=== PATIENT | male | born 1955 | race Caucasian/White ===

== ENCOUNTER → 2022-11-25 14:38 | Outpatient (BNVA) | payer MEDICARE, SELFPAY | PROVIDERS: PCP Clinical Nurse Specialist Adult Health; Visit Provider Clinical Nurse Specialist Adult Health | DX: I10 Essential (primary) hypertension (principal); Z12.5 Encounter for screening for malignant neoplasm of prostate | CPT/HCPCS: 80053; 80061; 83036; 84153; 84443; 85025 ==

== ENCOUNTER 2023-08-30 17:02 | Emergency (ER) | payer MEDICARE, SELFPAY ==
[2023-08-30 17:03] VITALS: BP 196/117; PULSE 91; RESP 18; TEMP 36.4; O2SAT 98; BMI 23.0
--- NOTE | 2023-08-30 17:22 | CTR_ITS ---
PROCEDURE INFORMATION: Exam: CT Chest With Contrast; Diagnostic Exam date and time: 08/30/2023 7:30 PM Age: 68 years old Clinical indication: Abdominal pain; Acute; Chest pressure; Patient HX: PT uncooperative had to be held to get scan got the best we could; Additional info: Right flank pain TECHNIQUE: Imaging protocol: Diagnostic computed tomography of the chest with contrast. Radiation optimization: All CT scans at this facility use at least one of these dose optimization techniques: automated exposure control; mA and/or kV adjustment per patient size (includes targeted exams where dose is matched to clinical indication); or iterative reconstruction. Contrast material: OMNI 350; Contrast volume: 100 ml; Contrast route: INTRAVENOUS (IV); COMPARISON: No relevant prior studies available. RADIATION DOSE METRICS: Total DLP (mGy-cm): 1311.55 FINDINGS: Limitations: Study somewhat limited due to streak artifact created by the patient being scanned with the arms at the sides. Lungs: There is calcified granuloma in the middle lobe. There is mild dependent atelectasis at the lung bases. Pleural spaces: Unremarkable. No pneumothorax. No pleural effusion. Heart: Unremarkable. No cardiomegaly. No pericardial effusion. Lymph nodes: There are calcified mediastinal lymph nodes in keeping with old granulomatous disease. There are small paratracheal and prevascular lymph nodes. There is no adenopathy. Vasculature: There is no thoracic aortic aneurysm or dissection. Bones/joints: There is no evidence of acute fracture. The thoracic spine demonstrates moderate degenerative changes at multiple levels. There is mild chronic appearing wedging of T7. There is mild scoliosis in the upper and midthoracic spine. Soft tissues: Unremarkable. PROCEDURE INFORMATION: Exam: CT Abdomen And Pelvis With Contrast Exam date and time: 08/30/2023 7:30 PM Age: 68 years old Clinical indication: Abdominal pain; Acute; Chest pressure; Patient HX: PT uncooperative had to be held to get scan got the best we could; Additional info: Right flank pain TECHNIQUE: Imaging protocol: Computed tomography of the abdomen and pelvis with contrast. Radiation optimization: All CT scans at this facility use at least one of these dose optimization techniques: automated exposure control; mA and/or kV adjustment per patient size (includes targeted exams where dose is matched to clinical indication); or iterative reconstruction. Contrast material: OMNI 350; Contrast volume: 100 ml; Contrast route: INTRAVENOUS (IV); COMPARISON: No relevant prior studies available. RADIATION DOSE METRICS: Total DLP (mGy-cm): 1311.55 FINDINGS: Limitations: Study somewhat limited due to streak artifact created by the patient being scanned with the arms at the sides. Diaphragm: There is a small hiatal hernia. Liver: There is a diffuse decrease in hepatic parenchymal density, consistent with mild fatty infiltration. There is no focal abnormality within the liver. Gallbladder and bile ducts: The gallbladder is normal. There is no common bile duct dilation. Pancreas: The pancreas is normal. Spleen: The spleen is normal. Adrenal glands: The adrenal glands are normal. Kidneys and ureters: The kidneys are normal. There is no evidence of hydronephrosis. There is no evidence of renal or ureteral calcifications. Stomach and bowel: Moderate diverticulosis is present in the distal colon. There is no evidence of colitis/diverticulitis. There is no evidence of intestinal obstruction. There is a large amount of feces throughout the colon which could represent constipation. Please correlate clinically Appendix: A normal appendix is identified. Intraperitoneal space: There is no evidence of free intraperitoneal fluid. Vasculature: The aorta demonstrates mild atherosclerotic calcification. There is no evidence of an abdominal aortic aneurysm. Lymph nodes: There is no evidence of lymphadenopathy. Urinary bladder: Unremarkable as visualized. Reproductive: The prostate demonstrates mild nonspecific enlargement. The seminal vesicles are normal. Bones/joints: The lumbar spine demonstrates moderate degenerative changes at multiple levels. There is no evidence of acute fracture. Soft tissues: There are bilateral inguinal hernias containing only fat. CT/CT chest abdpel w/*[id number] IMPRESSION: No acute findings in the chest. IMPRESSION: No acute findings in the abdomen or pelvis.
--- NOTE | 2023-08-30 17:25 | ED_ITS ---
HPI - Abdominal Pain 2 General: Chief Complaint: Abdominal Pain Stated Complaint: ABD PAIN Time Seen by Provider: 08/30/23 17:09 Source: patient Mode of arrival: EMS Limitations: no limitations History of Present Illness: This patient presents to the emergency department via EMS. EMS was called by spouse because of concerned about persistent and recurrent right abdominal and flank pain. Apparently this patient has been having the symptoms off and on for the past 6 weeks. No known inciting event. 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 He states he denies any known injury. He states that there was some thought that in the past he had developed a pneumonia with cough and that he may have had a musculoskeletal cause of his symptoms. He has been evaluated at [facility] recently and prior to proceeding that he was at [place] below for evaluation without any diagnosis. He states when he left [facility] 3 days ago he was feeling better but they did not know what the cause of his symptoms were. He has not any abdominal surgeries. He denies any history of cardiovascular disease. Denies history of renal stones. He states he has had back surgeries but has no history of loss of bowel or bladder control fever weakness numbness loss of strength etc. There is been no fevers associated with his current symptoms. He states that on occasion he will wake him from sleep. He states when they come on they are almost incapacitating and then they rasheeda. MD elicited complaint: abdominal pain and flank pain Location: RUQ and R flank Severity: severe Quality: cramping and sharp Relieving factors: nothing Associated Symptoms: Reports no associated symptoms; Denies chills, diarrhea, dysuria, fever(s), hematochezia, hematuria, hematemesis, melena and syncope Review of Systems 2 Const: Denies: fever(s) or chills Eyes: Denies: change in vision ENMT: Denies: nasal discharge or nasal congestion Card: Denies: chest pain, palpitations, irregular heart rhythm, lightheadedness or syncope Resp: Denies: dyspnea, productive cough, non-productive cough or wheezing GI: Reports: abdominal pain; Denies: hematemesis, diarrhea, hematochezia or melena : Reports: flank pain; Denies: difficulty urinating, dysuria, urinary frequency or hematuria Musc: Denies: neck pain, extremity pain or extremity swelling Skin/Breast: Denies: rash Neuro: Denies: headache(s), numbness in extremities or weakness in extremities Psych: Denies: anxiety or depression PFSH ED 2 PFSH: Medical History Insomnia Screening for colon cancer Screening for prostate cancer Hypertension Bulging of cervical intervertebral disc Surgical History History of back surgery hx of 5 back surgeries in past, with some fusions and some discectomies. He has some that have wires in place. Family History Other Diabetes Hyperlipidemia Hypertension Social History Smoking and tobacco/nicotine status: current every day tobacco/nicotine user smokeless tobacco Smokeless tobacco user: chewing tobacco Smokeless tobacco details: for 50 years Alcohol intake: former Physical Exam 2 Narrative: EXAM NARRATIVE: Patient on initial interview was in no acute distress alert and cooperative and answers questions in a goal-directed fashion and developed a spasm of pain which caused her to bend over and attempt to get out of bed and attempt to find a comfortable position. Const: COMMON NORMALS: average body habitus, patient oriented x3, healthy appearing and alert GENERAL APPEARANCE: cooperative HENMT: COMMON NORMALS: normocephalic, Normal nasal mucous membranes and turbinates present, moist oral mucous membranes and oropharynx normal HEAD & SCALP: normocephalic NOSE: Normal nasal mucous membranes and turbinates present Eye: COMMON NORMALS: Equal, round and reactive pupils present, EOMs intact bilaterally and conjunctivae normal CONJUNCTIVA: Yes conjunctivae normal P UPIL: Yes Equal, round and reactive pupils present Neck/C-Spine: COMMON NORMALS: full ROM, no lymphadenopathy, supple, no JVD and No carotid bruits Chest: COMMONS NORMALS: normal inspection of the chest and normal palpation of entire chest wall Resp: COMMON NORMALS: normal respiratory effort, No retractions, No use of accessory muscles and clear to auscultation bilaterally AUSCULTATION: clear to auscultation bilaterally Cardio: COMMON NORMALS: no JVD, regular rate, regular rhythm, No murmurs present (Cardio) and Peripheral pulses 2+ throughout RATE: regular rate R HYTHM: regular rhythm PERIPHERAL PULSES: Peripheral pulses 2+ throughout GI: COMMON NORMALS: Normal to inspection, nondistended, normoactive bowel sounds present PALPATION: Yes Tenderness to palpation present (GI) (He has tenderness to palpation around the right flank. No skin rashes, ecc) Back/Pelvis: COMMON NORMALS: thoracic and lumbar spine normal to inspection, no thoracic nor lumbar tenderness, thoraco-lumbar ROM normal and straight leg raise negative bilaterally Extremity: COMMON NORMALS: normal to inspection, full ROM, capillary refill normal, no joint enlargement, no clubbing, cyanosis or edema and no calf tenderness Neuro: COMMON NORMALS: patient oriented x3, moves all extremities, no focal motor deficits and no sensory deficits noted SENSORIUM/ORIENTATION: Yes alert GAIT: Yes Normal gait present Psych: COMMON NORMALS: mental status grossly normal Skin: COMMON NORMALS: no rashes or lesions noted, turgor normal and no jaundice GENERAL SKIN EXAM: no rashes or lesions noted and turgor normal Course 2 Reevaluation(s): Reevaluation #1: Patient's not able to lie flat for his CT we will go ahead and give him a benzodiazepine to medicate some of his symptoms which I think are musculoskeletal and then reattempt study. Time: 18:43 Reevaluation #2: Patient has been symptom-free now for some time. Discussed current findings with patient and spouse. CT scan is unrevealing for any significant pathology of emergent concern. Discussed the possibility given the negative workup thus far both at this facility and others in his current clinical picture that there is likely a musculoskeletal component. His then raised concern that is there a potential that this could be a physical complaint related to feeling his feeling depressed. She states that he does not engage in some of the usual pleasurable activities such as working around his house using his new tractor and that she will come home at times and he will be in a house by himself with the lights turned down lower the TV off or on mute. She has been not concerned that he is thinking of harming himself but she is thinking that he is sad and depressed. Time: 21:45 Vital Signs: Vital signs: Vital Signs Temperature 97.6 F 08/30/23 17:03 Pulse Rate 91 08/30/23 17:03 Respiratory Rate 16 08/30/23 19:06 Blood Pressure 178/103 08/30/23 19:06 Pulse Oximetry 98 08/30/23 17:03 Oxygen Delivery Me thod Room Air 08/30/23 17:03 MDM - Abdominal Pain Medical Decision Making This patient presented to our emergency department because of recurrent symptoms of occurred over the past 6 weeks predominantly of intermittent colicky type abdominal pain. This has had no significant pattern related to activity food elimination etc. No nausea vomiting diarrhea fevers chills or other associated symptoms. No prior abdominal surgeries. He has been evaluated to do other facility earlier this month with a negative workup as well as [facility] for an extended workup with a negative result for any pathology. Clinical exam revealed essentially normal examination although he did display symptoms during our interview of extreme doubling over and acting as if he was in extreme discomfort. There was no evidence to suggest acute abdomen clinically etc. Because of his presentation a workup was initiated to include laboratories as well as CT chest abdomen pelvis. Laboratories as well as imaging were very reassuring without any evidence of pathology. He did require both the use of analgesics as well as a benzodiazepine to control his symptoms. raise the specter of possible depressive related to somatic symptoms and this certainly could be a possibility as well as possibility of just muscle spasm which was triggered by coughing episodes historically per the patient. Early no evidence at this time of an ongoing emergency medical condition but will require additional follow-up and evaluation. I started the patient on a low-dose of benzo benzodiazepine as a muscle relaxant to take for the next week to see if that controls his symptoms and at the 's request I also initiated a SSRI Zoloft 25 mg daily #7 until he is seen in his primary care clinic. We also discussed discussed return precautions. Lab Data I reviewed the patient's lab results. 08/30/23 17:43 08/30/23 17:43 Labs/Radiology: Radiology Impressions Chest/Abdomen/Pelvis CT 08/30/23 17:22 IMPRESSION: No acute findings in the chest. IMPRESSION: No acute findings in the abdomen or pelvis. Laboratory Results WBC 8.54 10^3/uL (3.29-11.43) 08/30/23 17:43 RBC 5.74 10^6/uL (3.85-5.65) H 08/30/23 17:43 Hgb 17.40 g/dL (11.27-16.99) H 08/30/23 17:43 Hct 50.6 % (37-53) 08/30/23 17:43 MCV 88.2 fl (82-101) 08/30/23 17:43 MCH 30.3 pg (27-33) 08/30/23 17:43 MCHC 34.4 g/dL (30-55) 08/30/23 17:43 RDW 12.5 % (12.1-15.1) 08/30/23 17:43 Plt Count 300 10^3/cmm (157-399) 08/30/23 17:43 MPV 9.4 fL (7.4-10.4) 08/30/23 17:43 Neut % (Auto) 70.0 % 08/30/23 17:43 Lymph % (Auto) 17.3 % 08/30/23 17:43 [place] % (Auto) 9.8 % 08/30/23 17:43 Eos % (Auto) 1.9 % 08/30/23 17:43 Baso % (Auto) 0.6 % 08/30/23 17:43 Neut # (Auto) 5.98 10^3/uL (1.8-7.7) 08/30/23 17:43 Lymph # (Auto) 1.5 10^3/uL (0.8-4.8) 08/30/23 17:43 [place] # (Auto) 0.8 10^3/uL (0.2-0.9) 08/30/23 17:43 Eos # (Auto) 0.2 10^3/uL (0.0-0.8) 08/30/23 17:43 Baso # (Auto) 0.1 10^3/uL (0.0-0.1) 08/30/23 17:43 Nucleated RBC % (auto) 0 % 08/30/23 17:43 Nucleated RBCs # 0.0 /100WBC 08/30/23 17:43 Sodium 133 mmol/L (136-145) L 08/30/23 17:43 Potassium 4.3 mmol/L (3.5-5.1) 08/30/23 17:43 Chloride 97 mmol/L (98-107) L 08/30/23 17:43 Carbon Dioxide 26 mmol/L (22-29) 08/30/23 17:43 Anion Gap 14.3 (5-19) 08/30/23 17:43 BUN 11 mg/dL (8-23) 08/30/23 17:43 Creatinine 0.8 mg/dL (0.7-1.2) 08/30/23 17:43 GFR Calculation 96.1 mL/min (90-130) 08/30/23 17:43 Glucose 126 mg/dL (65-115) H 08/30/23 17:43 Calculated Osmolality 277 mOsm/kg (285-295) L 08/30/23 17:43 Calcium 8.6 mg/dL (8.5-10.5) 08/30/23 17:43 Total Bilirubin 0.4 mg/dL (0.15-1.2) 08/30/23 17:43 AST 18 U/L (0-40) 08/30/23 17:43 ALT 23 U/L (0-41) 08/30/23 17:43 Alkaline Phosphatase 63 U/L (40-130) 08/30/23 17:43 Total Protein 7.6 g/dL (6.6-8.7) 08/30/23 17:43 Albumin 4.4 g/dL (3.5-5.2) 08/30/23 17:43 Globulin 3.2 g/dL (1.3-4.6) 08/30/23 17:43 Lipase 35 U/L (13-60) 08/30/23 17:43 All radiology interpretation(s) finalized by discharge EKG Data EKG 1: I personally reviewed and interpreted this EKG as follows: Interpretation: Contemporaneous review of his resting EKG reveals a ventricular rate of 83 beats minute consistent with sinus rhythm. Normal SC interval, QRS duration, corrected QT interval. Normal axis. Loss of R wave anteriorly suggestive of possible septal DE age-indeterminate. No acute ST-T wave changes noted. Discharge Plan Discharge Patient Disposition: Home Clinical Impression: Abdominal pain in male Condition: Stable Prescriptions: New Valium 5 mg tablet 5 mg PO BID PRN (Reason: muscle spasm) Qty: 14 0RF sertraline 25 mg tablet 25 mg PO DAILY Qty: 7 0RF Discontinued cyclobenzaprine 5 mg tablet 5 mg PO TID PRN (Reason: muscle spasm) Qty: 90 1RF No Action aspirin [Adult Aspirin Regimen] 81 mg tablet,delayed release (DR/EC) 81 mg PO DAILY multivitamin Tablet 1 tab PO DAILY Excedrin Migraine 250-250-65 mg tablet 1 tab PO Q6H PRN lisinopril 20 mg tablet 20 mg PO DAILY Qty: 90 1RF Discharge Orders: Discharge ED (Routine); Ordered 08/30/23 Ordered By: Fito Vasquez Referrals: Sam Bocanegra [employer] OPERATOR [Primary Care Provider] - 7-10 days Discharge Diet: Usual diet Discharge Activity: Resume usual activity Patient Instructions: Abdominal Pain (ED), Opioid Safety, Pain Management Activity Restrictions/Additional Instructions: As we discussed while you are in the emergency department we did not find any evidence of a serious cause for your symptoms.. That it may in fact be related to a musculoskeletal muscle spasm etc. of the muscles of your back and abdomen. We are provided you with a trial of medication to see if we can help your symptoms. We have also provided you with another medicine to help some of your depressive symptoms. You should follow-up with your primary care clinic in the next week to determine your response to these medications and determine if you continue to need additional medications. If you have any new or worsening symptoms you are welcome to return to the emergency department anytime for reevaluation. Coding Level of Care Code ED [facility]
--- NOTE | 2023-08-30 17:34 | ECG_ITS ---
[facility] Test Date: 2023-08-30 Pat Name: Jj Navarro Department: Room: Gender: Male Taper/Finisher: : 1955 Requested By: Fito Vasquez Order Number: [id number] Krystin MD: Vandana Goodman M.D. Measurements Intervals Speed Rate: 83 P: 55 NC: 151 QRS: -17 QRSD: 94 T: 34 QT: 367 QTc: 433 Interpretive Statements SINUS RHYTHM POSSIBLE LEFT ATRIAL ENLARGEMENT [-0.1mV P-WAVE IN V1/V2] SEPTAL MYOCARDIAL INFARCTION , PROBABLY OLD [40+ ms Q WAVE IN V1/V2] No previous ECG available for comparison Electronically Signed On 08-30-2023 22:30:59 CDT by Vandana Goodman M.D. [id number] f
[2023-08-30 18:02] LABS: Basophils # 0.1 10^3/uL (0.0-0.1); Basophils % 0.6 %; Eosinophils # 0.2 10^3/uL (0.0-0.8); Eosinophils % 1.9 %; Hematocrit 50.6 % (37-53); Lymphocytes # 1.5 10^3/uL (0.8-4.8); Lymphocytes % 17.3 %; Mean Corpuscular HGB Conc 34.4 g/dL (30-55); Mean Corpuscular Hemoglobin 30.3 pg (27-33); Mean Corpuscular Volume 88.2 fl (82-101); Mean Platelet Volume 9.4 fL (7.4-10.4); Monocytes # 0.8 10^3/uL (0.2-0.9); Monocytes % 9.8 %; Neutrophils # 5.98 10^3/uL (1.8-7.7); Nucleated Red Blood Cells % 0 %; Platelet Count 300 10^3/cmm (157-399); Red Blood Count 5.74 10^6/uL (3.85-5.65); Red Cell Distribution Width 12.5 % (12.1-15.1); White Blood Count 8.54 10^3/uL (3.29-11.43)
[2023-08-30] MEDS: sodium chloride 0.9% 1,000 ML 999 ML IV (18:02)
[2023-08-30] MEDS: diphenhydrAMINE 50 mg/mL SDV 1mL 12.5 MG IVP (18:04)
[2023-08-30] MEDS: haloperidol inj 5 mg/mL INJ 1 mL IVP (18:05)
[2023-08-30 18:22] LABS: Alanine Aminotransferase 23 U/L (0-41); Albumin Level 4.4 g/dL (3.5-5.2); Alkaline Phosphatase 63 U/L (40-130); Anion Gap 14.3 (5-19); Aspartate Amino Transferase 18 U/L (0-40); Blood Urea Nitrogen 11 mg/dL (8-23); Calcium 8.6 mg/dL (8.5-10.5); Carbon Dioxide 26 mmol/L (22-29); Chloride 97 mmol/L (98-107); Creatinine Clr Calc Pharmacy 96.7555; Globulin 3.2 g/dL (1.3-4.6); Glomerular Filtration Rate 96.1 mL/min (90-130); Glucose 126 mg/dL (65-115); Lipase 35 U/L (13-60); Osmolality Calculated 277 mOsm/kg (285-295); Potassium 4.3 mmol/L (3.5-5.1); Sodium 133 mmol/L (136-145); Total Bilirubin 0.4 mg/dL (0.15-1.2); Total Protein 7.6 g/dL (6.6-8.7)
[2023-08-30] MEDS: LORazepam 2 mg/mL INJ 10 mL MDV IVP (18:48)
[2023-08-30 19:06] VITALS: BP 178/103; RESP 16
[2023-08-30] MEDS: iohexol 350 mg/mL 500 mL Btl (per mL) IV (19:28)
[2023-08-30 20:00] VITALS: BP 161/91; PULSE 96; O2SAT 94
[2023-08-30 21:00] VITALS: BP 140/91; PULSE 90
[2023-08-30 22:16] VITALS: BP 145/88; PULSE 90; O2SAT 95
== END 2023-08-30 22:17 | disposition home or self-care (01) ==
PROVIDERS: Emergency Provider Emergency Medicine; PCP Clinical Nurse Specialist Adult Health
DX: R10.9 Unspecified abdominal pain (principal); Z79.82 Long term (current) use of aspirin; I10 Essential (primary) hypertension; F17.220 Nicotine dependence, chewing tobacco, uncomplicated
CPT/HCPCS: 36415; 71260; 74177; 80053; 83690; 85025; 93005; 96361; 96374; 96375; 99285; J1200; J1630; J2060; J7030; Q9967

== ENCOUNTER → 2023-09-09 09:35 | Outpatient (BNVA) | payer MEDICARE, SELFPAY | PROVIDERS: PCP Clinical Nurse Specialist Adult Health; Referring Provider Clinical Nurse Specialist Adult Health; Visit Provider Surgery | DX: R10.11 Right upper quadrant pain | CPT/HCPCS: 99204 ==

== ENCOUNTER 2023-09-15 09:39 | Outpatient (CLI) | payer MEDICARE, SELFPAY ==
--- NOTE | 2023-09-15 10:00 | US_ITS ---
WS: [id number] Complete ABDOMINAL ULTRASOUND HISTORY: abdominal pain COMPARISON: None available. Liver: 14.3 cm in length. Normal size liver and echogenicity. No bile duct dilatation or mass. Portal Vein: Normal hepatopetal flow with monophasic waveform. Gallbladder: Normally distended gallbladder with no stones or wall thickening. CBD: 0.5 cm Pancreas: Not visualized. Right kidney: 11.6 cm x 5.2 x 5.4 cm. Cortex:1.3 cm. Normal size and echogenicity. No hydronephrosis or mass. Left kidney: 11.5 cm x 6.2 cm x 6.4 cm. Cortex: 1.4 cm. Normal size and echogenicity. No hydronephrosis or mass. Spleen: 9.0 cm. Normal size and echogenicity. Aorta and IVC: Unremarkable abdominal aorta and IVC. US/US abdomen complete* [id number] Impression: 1. Normal gallbladder. 2. Negative liver. No bile duct dilatation. 3. Nonvisualization of the pancreas. 4. No renal obstruction.
== END 2023-09-15 09:40 | disposition home or self-care (01) ==
LOC: RAD 09:39
PROVIDERS: PCP Clinical Nurse Specialist Adult Health; Visit Provider Clinical Nurse Specialist Adult Health
DX: R10.11 Right upper quadrant pain (principal)
CPT/HCPCS: 76700

== ENCOUNTER 2023-09-23 10:00 | Outpatient (CLI) | payer MEDICARE, SELFPAY | END 2023-09-23 10:01 | disposition home or self-care (01) | LOC: RAD 09-24 09:39 | PROVIDERS: PCP Clinical Nurse Specialist Adult Health; Visit Provider Clinical Nurse Specialist Adult Health | DX: R10.11 Right upper quadrant pain (principal) | CPT/HCPCS: 87045; 87046; 87427; 87449; 87493 ==

== ENCOUNTER 2023-10-05 12:04 | Outpatient (CLI) | payer MEDICARE, SELFPAY ==
--- NOTE | 2023-10-05 12:15 | MR_ITS ---
WS: [id number] MRI THORACIC SPINE WITH CONTRAST TECHNIQUE: Sagittal T1, T2 and STIR imaging. Axial T2 imaging. Post gadolinium imaging was obtained. CLINICAL INFORMATION: back pain with radiculopathy COMPARISON: None. FINDINGS: Mild thoracic kyphosis. Mild thoracic curve. No acute compression fractures. Chronic anterior wedging in the midthoracic spine worse T7. RIGHT paracentral disc protrusion T9-T10 with impingement the RIGHT subarticular recess and slight co ntact of the RIGHT thoracic cord. This extends into the RIGHT neural foramen with moderate RIGHT prox imal foraminal narrowing. Mild central canal stenosis. Disc protrusion measures approximately 7 mm in AP dimension. Cord signal appears normal. A few shallow disc protrusions at T3-T4 T4-T5 T7-T8 and T8-T9. Moderate f acet arthropathy lower thoracic spine. Adrenal glands are normal. Small esophageal hernia. Normal shalini iber thoracic aorta. MR/MR thoracic spine wo/w [id number] IMPRESSION: 1. Prominent RIGHT paracentral protrusion at T9-T10 with mild central canal st enosis and filling of the RIGHT subarticular recess. Moderate narrowing of the RIGHT proximal neural foramen at this level. Slight contact of the thoracic cor d. Disc protrusion measures approximately 7 mm in AP dimension. 2. Cord signal is normal. 3. A few tiny shallow disc protrusions in the mid and upper thoracic spine. 4. No acute compression fractures. 5. Chronic anterior wedging at T7.
[2023-10-05] MEDS: gadobenate dimeglumine 20 mL vial IV (13:24)
== END 2023-10-05 12:05 | disposition home or self-care (01) ==
LOC: RAD 12:04
PROVIDERS: PCP Clinical Nurse Specialist Adult Health; Visit Provider Clinical Nurse Specialist Adult Health
DX: M54.14 Radiculopathy, thoracic region (principal); M51.24 Other intervertebral disc displacement, thoracic region; M48.04 Spinal stenosis, thoracic region; M46.94 Unspecified inflammatory spondylopathy, thoracic region; S22.060A Wedge compression fracture of T7-T8 vertebra, initial encounter for closed fracture; K44.9 Diaphragmatic hernia without obstruction or gangrene
CPT/HCPCS: 72157; A9577

== ENCOUNTER → 2023-10-15 14:48 | Outpatient (BNVA) | payer MEDICARE, SELFPAY | PROVIDERS: PCP Clinical Nurse Specialist Adult Health; Visit Provider Orthopaedic Surgery | DX: M54.14 Radiculopathy, thoracic region (principal); M51.24 Other intervertebral disc displacement, thoracic region | CPT/HCPCS: 72072; 80053; 81003; 85025; 99204 ==

== ENCOUNTER 2023-10-21 15:16 | Observation (INO) | payer MEDICARE, SELFPAY ==
[2023-10-21] VITALS (14 sets, daily range): BP systolic 136–171; BP diastolic 79–103; PULSE 98–120; RESP 14–19; TEMP 36.3–36.9; O2SAT 90–100; BMI 22.6
--- NOTE | 2023-10-21 | XR_ITS ---
WS: [id number] XR thoracic spine 2V 40602 REASON FOR EXAM: ANETTE PICS FINDINGS: Posterior decompression with pedicle screws at T9 and T10. Surgical appliances are intact and in proper position and alignment. XR/XR thoracic spine 2V [id number] IMPRESSION: Posterior decompression and pedicle screws for posterior thoracic fusion withou t abnormality
[2023-10-21] MEDS: sodium chloride 0.9% 1,000 ML 30 ML IV (10:55)
[2023-10-21] MEDS: methadone 10 mg Tablet PO (10:56)
--- NOTE | 2023-10-21 10:56 | ANES.PREANE2 ---
Pre-Anesthetic Assessment Height/Weight: Height 1.83 m Weight 75.75 kg Temp Pulse Resp BP Pulse Ox O2 Del Method 98.5 F 109 H 18 171/103 97 Room Air 10/21/23 10:32 10/21/23 10:32 10/21/23 10:32 10/21/23 10:32 10/21/23 10:32 10/21/23 10:35 Preop Diagnosis: T9/T10 herniated disk Operation Date: 10/21/23 11:50 Proposed Procedures p Spinal Fusion PSF(Not Applicable) - Blayne Yan, DO Familial anesthetic complications: None Was Beta Velvet taken within 24 hours: N/A Was Clonidine taken within 24 hours: N/A Last intake: Intake Last Liquid Date 10/20/23 Last Liquid Time 23:30 Last Solid Date 10/20/23 Last Solid Time 23:30 Social Tobacco and No alcohol Chews Exam alert, oriented x 3, clear to auscultation bilaterally and regular rate & rhythm Airway Mallampati: Class III Dentition: other (no upper teeth, bottom teeth ok) Comments: Comments: Receding manidble CV/HEM Hypertension NO CP, SOB, syncope Anesthetic Plan ASA status: 2 Anesthesia: General Risk of > 500 ml blood loss (7ml/kg in children): No Medications/Allergies Home Medications Medication Instructions Recorded Confirmed Last Taken Type amlodipine 10 mg tablet 10 mg PO DAILY #90 tabs 09/21/23 10/20/23 10/20/23 Rx hydrocodone 5 mg-acetaminophen 325 1 tab PO Q6H PRN pain 5 days #20 10/05/23 10/20/23 10/21/23 Rx mg tablet tabs sertraline 25 mg tablet 25 mg PO DAILY 10/20/23 10/20/23 10/20/23 History Allergies Allergy/AdvReac Type Severity Reaction Status Date / Time bee stings Allergy Intermediate Swelling Uncoded 10/16/23 10:38 lisinopril Allergy Intermediate ADR-suicidal Uncoded 10/16/23 10:38 thoughts PFSH Anesthesia Medical History Protrusion of intervertebral disc of thoracic region Peptic ulcer Enlarged prostate seen on CT abd/pelvis 08/2023. last PSA 16 Insomnia Screening for colon cancer Screening for prostate cancer Hypertension Bulging of cervical intervertebral disc Surgical History History of back surgery hx of 5 back surgeries in past, with some fusions and some discectomies. He has some that have wires in place. Family History Other Diabetes Hyperlipidemia Hypertension Social History Smoking and tobacco/nicotine status: former use of tobacco/nicotine Alcohol intake: former Household members: spouse Marital status: Data Anesthesia Cardiac Studies: No Data to Display
[2023-10-21 11:02] LABS: Basophils # 0.1 10^3/uL (0.0-0.1); Basophils % 0.6 %; Eosinophils # 0.1 10^3/uL (0.0-0.8); Eosinophils % 1.3 %; Hematocrit 45.9 % (37-53); Lymphocytes # 1.8 10^3/uL (0.8-4.8); Lymphocytes % 17.4 %; Mean Corpuscular HGB Conc 34.6 g/dL (30-55); Mean Corpuscular Hemoglobin 30.8 pg (27-33); Mean Corpuscular Volume 88.8 fl (82-101); Mean Platelet Volume 9.2 fL (7.4-10.4); Monocytes # 0.9 10^3/uL (0.2-0.9); Monocytes % 8.2 %; Neutrophils # 7.56 10^3/uL (1.8-7.7); Neutrophils % 71.9 %; Nucleated Red Blood Cells % 0 %; Platelet Count 281 10^3/cmm (157-399); Red Blood Count 5.17 10^6/uL (3.85-5.65); Red Cell Distribution Width 13.9 % (12.1-15.1); White Blood Count 10.51 10^3/uL (3.29-11.43)
--- NOTE | 2023-10-21 11:37 | W.PM.OPSUD ---
Surgery/Procedure H&P Update DATE OF PROCEDURE: October 21, 2023 DATE H&P PERFORMED: 10/16/23 H&P UPDATE INFORMATION: I have reviewed H&P completed within last 30 days, I have examined patient prior to procedure and No changes to prior documentation PREOP DIAGNOSIS: T9/T10 herniated disk PLANNED PROCEDURE: Operation Date: 10/21/23 11:50 Proposed Procedures p Spinal Fusion PSF(Not Applicable) - Blayne Yan DO
[2023-10-21] MEDS: ceFAZolin 2,000 MG in sodium chloride 0.9% (plus) 50 ML 100 MG IV (11:57)
[2023-10-21] MEDS: lidocaine-epi 1% 20 mL INJ INJECTION (13:13)
[2023-10-21] MEDS: vancomycin 1,000 MG SDV 1000 MG XX (13:13)
--- NOTE | 2023-10-21 15:00 | PM.OP ---
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 T9-T10 posterior spine fusion 2. T9-T10 posterior spine instrumentation 3. T9-10 laminectomy with facetectomy and discectomy 4. Use of computer navigation with stereotactic for the spine 5. Use of allograft 6. Use of autograft from same incision Surgeon: Blayne Yan DO Estimated blood loss (mL): 50 Procedure: 1. T9-T10 posterior spine fusion 2. T9-T10 posterior spine instrumentation 3. T9-10 laminectomy with facetectomy and discectomy 4. Use of computer navigation with stereotactic for the spine 5. Use of allograft 6. Use of autograft from same incision Patient is brought to the op suite after undergoing anesthesia patient is placed in the prone position. All areas impingement well-padded. Skin incision made over the T9-10 level this is confirmed under C-arm guidance. Subperiosteal dissection was made out to the transverse processes of T9 and T10 bilaterally. Was brought to placing the fiducial for the computer navigation. This was done by placing a clamp onto the spinous processes of T10 and then attaching the fiducial. C-arm was brought in and spun around the patient and the information from the computer was loaded from the C arm in order to facilitate placing the navigated screws. She was brought to placing the screws. This was done using the computer navigated gearshift probe followed by the pedicle feeler followed by placement of the screw. This was all done with the computer navigation. This was done at T9 bilaterally and T10 bilaterally. She was brought to performing the discectomy. This was done by performing a laminectomy at T9. This was done by taking down the spinous process with a rongeur followed by using the high-speed bur to thin out the lamina and then a Kerrison rongeur was used to take down the remaining lamina and take out the right facet. This done using the high-speed bur and Kerrison rongeur as well. The T9 nerve root was identified. Next a curved curette was used to identify the disc herniation. This was done by slightly retracting the nerve root up superiorly and then using the curved curette to hold the disc herniation out. This was an acute disc herniation needs a jellylike substance micropituitary was used to remove the disc fragments. The area was irrigated until there were no fragments left. Once all the main disc fragments were removed wounds were irrigated. Next tension was brought to placing the rods. Rods were placed at T9-10 bilaterally screw caps were locked and torqued into position. Next the transverse processes of T9-T10 were decorticated. And bone graft from the laminectomy as well as ostial amp was packed into the lateral gutters. Vancomycin powder was placed and wound was closed in layered fashion with 0 Vicryl 2-0 Vicryl and Monocryl suture. Sterile dressings were applied patient transferred to the PACU in stable condition.
--- NOTE | 2023-10-21 15:20 | ANE.PACU2 ---
Inpatient post-anesthesia follow up: Airway intact: Yes Vital signs: Temperature 97.8 F Pulse Rate 100 Respiratory Rate 16 Blood Pressure 165/90 Pulse Oximetry 94 Oxygen Delivery Me thod Room Air Oxygen Flow Rate 8 Fraction of Inspir ed Oxygen Hydration adequate: Yes Nausea and vomiting: No Pain level: 1 Mental status: Baseline
[2023-10-21] MEDS: ceFAZolin 2,000 mg SDV 2000 MG IVP ×2 (16:20→23:21)
[2023-10-21] MEDS: lactated ringers 1,000 ML 90 ML IV (16:20)
[2023-10-21] MEDS: morphine 4 mg/mL SDV 1 mL 2 MG IVP (16:20)
[2023-10-21] MEDS: water for injection-sterile 20 ML (16:21)
[2023-10-21] MEDS: docusate sodium 100 mg Capsule PO (17:58)
[2023-10-21] MEDS: HYDROcodone-acetaminophen 5-325 mg Tablet PO (18:19)
[2023-10-21] MEDS: water for injection-sterile SDV 10 mL 15 ML IVP (23:21)
[2023-10-21] MEDS: alum-mag-hydroxide-sime 30 mL UDC PO (23:33)
[2023-10-22] VITALS: BP 131/78; PULSE 113; RESP 18; TEMP 36.4; O2SAT 94
[2023-10-22] MEDS: alum-mag-hydroxide-sime 30 mL UDC PO ×2 (03:31→08:01)
[2023-10-22] MEDS: lactated ringers 1,000 ML 90 ML IV (03:31)
[2023-10-22] MEDS: HYDROcodone-acetaminophen 5-325 mg Tablet PO ×2 (03:31→08:07)
[2023-10-22 04:00] VITALS: BP 148/87; PULSE 113; RESP 18; TEMP 36.6; O2SAT 94
[2023-10-22] MEDS: ceFAZolin 2,000 mg SDV 2000 MG IVP (05:53)
[2023-10-22] MEDS: water for injection-sterile SDV 10 mL 15 ML IVP (05:53)
[2023-10-22 07:25] LABS: Basophils % 0.1 %; Hematocrit 41.3 % (37-53); Lymphocytes % 5.9 %; Mean Corpuscular HGB Conc 33.7 g/dL (30-55); Mean Corpuscular Hemoglobin 30.5 pg (27-33); Mean Corpuscular Volume 90.8 fl (82-101); Mean Platelet Volume 9.2 fL (7.4-10.4); Monocytes # 1.3 10^3/uL (0.2-0.9); Neutrophils # 13.84 10^3/uL (1.8-7.7); Neutrophils % 85.7 %; Nucleated Red Blood Cells % 0 %; Platelet Count 258 10^3/cmm (157-399); Red Blood Count 4.55 10^6/uL (3.85-5.65); Red Cell Distribution Width 13.8 % (12.1-15.1); White Blood Count 16.17 10^3/uL (3.29-11.43)
[2023-10-22 07:30] VITALS: BP 165/90; PULSE 100; RESP 16; TEMP 36.6; O2SAT 94
[2023-10-22] MEDS: amlodipine 10 mg Tablet PO (07:59)
[2023-10-22] MEDS: docusate sodium 100 mg Capsule PO (07:59)
[2023-10-22] MEDS: sertraline 50 mg Tablet 25 MG PO (07:59)
--- NOTE | 2023-10-22 10:49 | PM.DCS ---
Discharge Providers Date of Admission: 10/21/23 15:16 Date of Discharge: October 22, 2023 Attending Provider at Admission: Blayne Yan DO Attending Provider at Discharge: Blayne Yan DO Primary Care Provider: Sam Bocanegra Reason for Visit Reason for Visit: M51.24 Hospital Course Hospital Course Patient stated that the pain that he had going around his chest is no longer present. Patient also notes that his arm is no longer numb. At this point patient has been up ambulating doing well anticipate discharge today. Discharge Data Studies Completed and Pending Pending at discharge Category Date Time Status C-arm Fluoroscopy 82708 Routine Exams 10/21/23 10:14 Taken Laboratory Results WBC 16.17 10^3/uL (3.29-11.43) H 10/22/23 07:09 RBC 4.55 10^6/uL (3.85-5.65) 10/22/23 07:09 Hgb 13.90 g/dL (11.27-16.99) 10/22/23 07:09 Hct 41.3 % (37-53) 10/22/23 07:09 MCV 90.8 fl (82-101) 10/22/23 07:09 MCH 30.5 pg (27-33) 10/22/23 07:09 MCHC 33.7 g/dL (30-55) 10/22/23 07:09 RDW 13.8 % (12.1-15.1) 10/22/23 07:09 Plt Count 258 10^3/cmm (157-399) 10/22/23 07:09 MPV 9.2 fL (7.4-10.4) 10/22/23 07:09 Neut % (Auto) 85.7 % 10/22/23 07:09 Lymph % (Auto) 5.9 % 10/22/23 07:09 Upson % (Auto) 8.0 % 10/22/23 07:09 Eos % (Auto) 0.0 % 10/22/23 07:09 Baso % (Auto) 0.1 % 10/22/23 07:09 Neut # (Auto) 13.84 10^3/uL (1.8-7.7) H 10/22/23 07:09 Lymph # (Auto) 1.0 10^3/uL (0.8-4.8) 10/22/23 07:09 Upson # (Auto) 1.3 10^3/uL (0.2-0.9) H 10/22/23 07:09 Eos # (Auto) 0.0 10^3/uL (0.0-0.8) 10/22/23 07:09 Baso # (Auto) 0.0 10^3/uL (0.0-0.1) 10/22/23 07:09 Nucleated RBC % (auto) 0 % 10/22/23 07:09 Nucleated RBCs # 0.0 /100WBC 10/22/23 07:09 Blood Type B Positive 10/21/23 10:50 Rho(D) Type Rh positive 10/21/23 10:50 Antibody Screen Negative 10/21/23 10:50 Vitals Last Vital Signs Temp 97.8 F 10/22/23 07:30 Pulse 100 10/22/23 07:30 Resp 16 10/22/23 07:30 BP 165/90 10/22/23 07:30 Pulse Ox 94 10/22/23 07:30 O2 Del Method Room Air 10/22/23 07:30 O2 Flow Rate 8 10/21/23 15:10 Discharge Plan Discharge Patient Disposition: Home Condition: Stable Prescriptions: New hydrocodone-acetaminophen 5-325 mg tablet 1 - 2 tab PO .Q4-6H Qty: 40 0RF Continued amlodipine 10 mg tablet 10 mg PO DAILY Qty: 90 1RF hydrocodone-acetaminophen 5-325 mg tablet 1 tab PO Q6H PRN (Reason: pain) 5 Days Qty: 20 0RF sertraline 25 mg tablet 25 mg PO DAILY Discharge Orders: Discharge Order (Routine); Ordered 10/22/23 Ordered By: Blayne Yan Discharge Diet: Advance as tolerated Discharge Activity: Limit activity as instructed Patient Instructions: Acute Wound Care (DC), Opioid Safety, Post Anesthesia Care Activity Restrictions/Additional Instructions: Thank you for [facility] for your care! The following is a list of instructions, from your provider, to follow upon your discharge to ensure you have the optimal recovery from your recent injury orsurgery. Follow-up care is a jose part of your treatment and safety. Be sure to make and go to all appointments, and call your doctor if you are having problems. If you do not already have a follow-up appointment made, call Dr. Yan office in the next 1-3 days to make follow up appointment for 1 weeks at [phone]. It is also a good idea to know your test results and keep a list of the medicines you take. Medications will be prescribed for you at your provider's discretion. These medications are to be used as instructed; if they are taken more often that prescribed they will not be refilled early and in most cases will not be refilled at all. > When a refill is needed,you should contact juan sow 2-3 business days before your prescription runs out. Medications will NOT be refilled by associate professor of communication providers after hours! > Many pain medications contain Tylenol (Acetaminophen). Do not consume more than 4,000 mg of Tylenol per day in total with any combination ofmedications. > Pain medications can cause constipation. Please use an over the counter stool softener as directed, while taking pain medications. Consulty our local pharmacist with questions or recommendations on stool softeners. If constipation persists, contact our office or your primary care provider. > While under our care,you are not to receive pain medications or other controlled substances from any other provider unless our office is notified and approves. Any attempts to do so will result in refusal to prescribe any further pain medications and possible dismissal from our practice. Keep dressing on until seen in clinic in 1 week. ? Showering is permitted, however we ask that you do not take a bath, sit in a whirlpool / Jacuzzi, or go swimming for 1 month. For only the first 2 days after surgery, lt wilt be necessary for you to cover your wound/dressing with plastic and tape to keep it dry. ? Walking is essential for the healing process after surgery. We would like you to slowly advance your walking. This should be done on relatively flat clear ground (inside or out) or can be done on a treadmill. Remember this goal does not have to happen all at once, slowly increase your distance and duration. This can be broken into more more than one walk per day as tolerated. Patients who walk as directed after surgery rarely require Physical Therapy. In the unlikely event this issue arises your provider will direct hospital staff to make the appropriate arrangements. ? No lifting over 5 pounds {a gallon of milk) or bending/twisting until further notice. Each of these activities places an unnecessary amount of stress onto the body and can impede the delicate healing process. > Instead of bending at the waist, keep your back straight and bend at the knees. > Instead of twisting your torso, keep your back straight and turn your entire body with your feet. ? You may sleep in any position which makes you comfortable. Many patients find comfort sleeping in a reclining chair. It is not abnormal to have difficulty sleeping for the first several weeks following your surgery. We recommend trying Benadry! or Tylenol PM as directed to help with your sleeping difficulties. Both medications are over the counter and available withoutprescription. ? NO SMOKING!!! Smoking dramatically increases the probability of developing postoperative wound infections. ? Common complaints after lumbar and/or thoracic spine surgery include, but are not limited to: numbness and/or tingling in the legs, pain around the incision and surrounding tissues, muscle spasms, or stiffness of the middle to low back. Contact our office if these symptoms persist or if an acute change occurs. ? No driving for the first 3-5days, and not while taking narcotics [] until seen at your follow-up appointment and cleared. There are no restrictions for riding on short trips, however if you take a longer trip, arrangements should be made to make regular stops to get out of the vehicle and stretch . ? Swelling is an unfortunate event that will take place with any surgery and is the primary source of your postoperative discomfort. While walking and regular approved activities helps control inflammation, there are additional steps you can take to minimizeswelling. > Place ice over the surgical site and surrounding tissue for twenty minutes, followed by applying a low/medium heat (heating pad) for an additional twenty minutes every 1-2 hours as needed for painrelief. > You may use of over the counter anti-inflammatory medications (Ibuprofen, Motrin, Aleve, Advil, etc) as directed on the package label. These types of medicines wm significantly reduce the amount of discomfort you experience after surgery from swelling. It should be noted that if you have and allergy to any of these medications, or a history of ulcers or kidney disease you should consult you primary care provider prior to starting these medications. Discharge Attestations Time Spent in Discharge Care*: less than 30 min Quality Metrics Clinical Quality Measures [ No reported AMI, CVA or VTE this stay] Coding Level of Care Code Acute Code for Chg Fwd
[2023-10-22 12:35] VITALS: BP 165/90; PULSE 100; RESP 16; TEMP 36.6; O2SAT 94
== END 2023-10-22 11:00 | disposition home or self-care (01) ==
LOC: MEDSURG 15:17
PROVIDERS: Anesthesiology; Admitting Provider Orthopaedic Surgery; PCP Clinical Nurse Specialist Adult Health; Visit Provider Orthopaedic Surgery
PROC: (CPT 20930; principal; 2023-10-21 11:30)
DX: M51.04 Intervertebral disc disorders with myelopathy, thoracic region (principal); I10 Essential (primary) hypertension; Z87.11 Personal history of peptic ulcer disease; Z87.891 Personal history of nicotine dependence
CPT/HCPCS: 20930; 20936; 22610; 22840; 61783; 36415; 72070; 76000; 85025; 86850; 86900; 97161; C1713; G0378; J0690; J1100; J2270; J2405; J2704; J2710; J3010; J3370; J3490; J7030; J7120

== ENCOUNTER → 2023-10-29 08:43 | Outpatient (BNVA) | payer MEDICARE, SELFPAY | PROVIDERS: PCP Clinical Nurse Specialist Adult Health; Visit Provider Orthopaedic Surgery | DX: Z98.1 Arthrodesis status (principal) | CPT/HCPCS: 85025; 99024 ==

== ENCOUNTER → 2023-11-10 08:11 | Outpatient (BNVA) | payer MEDICARE, SELFPAY | PROVIDERS: PCP Clinical Nurse Specialist Adult Health; Visit Provider Orthopaedic Surgery | DX: Z98.1 Arthrodesis status (principal) | CPT/HCPCS: 99024 ==

== ENCOUNTER → 2023-12-08 08:27 | Outpatient (BNVA) | payer MEDICARE, SELFPAY | PROVIDERS: PCP Clinical Nurse Specialist Adult Health; Visit Provider Orthopaedic Surgery | DX: Z98.1 Arthrodesis status (principal); Z47.89 Encounter for other orthopedic aftercare | CPT/HCPCS: 72072; 72100; 99024 ==

== ENCOUNTER → 2024-01-12 08:32 | Outpatient (BNVA) | payer MEDICARE, SELFPAY | PROVIDERS: PCP Clinical Nurse Specialist Adult Health; Visit Provider Orthopaedic Surgery | DX: Z98.1 Arthrodesis status (principal) | CPT/HCPCS: 72072; 99024 ==

== ENCOUNTER → 2024-04-26 08:37 | Outpatient (BNVA) | payer MEDICARE, SELFPAY | PROVIDERS: PCP Clinical Nurse Specialist Adult Health; Visit Provider Orthopaedic Surgery | DX: Z98.1 Arthrodesis status (principal) | CPT/HCPCS: 72072; 99213 ==

== ENCOUNTER → 2024-10-04 09:25 | Outpatient (BNVA) | payer MEDICARE, SELFPAY | PROVIDERS: PCP Family Medicine; Visit Provider Family Medicine | DX: Z13.6 Encounter for screening for cardiovascular disorders (principal); R39.11 Hesitancy of micturition; R73.09 Other abnormal glucose; Z51.81 Encounter for therapeutic drug level monitoring | CPT/HCPCS: 80053; 80061; 83036; 84153; 85025 ==

== ENCOUNTER → 2024-10-18 08:12 | Outpatient (BNVA) | payer MEDICARE, SELFPAY | PROVIDERS: PCP Family Medicine; Visit Provider Orthopaedic Surgery | DX: Z98.1 Arthrodesis status (principal) | CPT/HCPCS: 72072; 99213 ==